=== PATIENT | male | born 1955 | race Caucasian/White ===

== ENCOUNTER → 2018-05-15 14:54 | Outpatient (CLI) | payer MEDICAID, SELFPAY ==
--- NOTE | 2018-05-15 14:58 | RAD_ITS ---
STUDY: X-RAY - RIGHT ELBOW REASON FOR EXAM: Male, 63 years old. Pain for 18 months, suspected lifting injury TECHNIQUE: 3 view(s) of the elbow. COMPARISON: None. FINDINGS: Normal visualized humerus, radius and ulna. Normal radiocapitellar and ulnotrochlear articulations. The soft tissue structures are unremarkable. No joint effusion. RAD/Elbow min 3 Views IMPRESSION: Normal x-ray examination of the elbow. Electronically Signed: Art Dean MD at 14:17 EDT , Service support ,
== END ==
PROVIDERS: Family Provider Family Medicine; PCP Family Medicine; Referring Provider Orthopaedic Surgery; Visit Provider Orthopaedic Surgery
DX: M25.521 Pain in right elbow (principal)
CPT/HCPCS: 73080

== ENCOUNTER → 2018-06-03 12:26 | Outpatient (CLI) | payer MEDICAID, SELFPAY ==
--- NOTE | 2018-06-03 12:28 | MRI_ITS ---
STUDY: MRI RIGHT ELBOW REASON FOR EXAM: Radial elbow pain for one year, no specific injury. TECHNIQUE: Standardized fat and water weighted pulse sequences were obtained in all 3 orthogonal planes. COMPARISON: Radiographs 05/15/2018. FINDINGS: Normal radio-capitellum articulation. Normal radial collateral ligamentous complex. There is an undersurface partial tear of the common extensor tendon (inversion recovery coronal images 10, 11). Normal ulnotrochlear articulation. Normal ulnar collateral ligamentous complex. Normal common flexor tendon. The cubital tunnel is normal, with a normal ulnar nerve. Normal biceps tendon and distal insertion. Normal lacertus fibrosis. Normal brachialis musculotendinous insertion. Normal triceps tendon and teno-osseous insertion. Normal olecranon process. The visualized distal humerus, proximal radius, and ulna are normal. The visualized muscles of the distal arm and proximal forearm are normal. The soft tissue structures are unremarkable. MRI/Upper Ext Joint Only(Routine) IMPRESSION: Lateral epicondylitis with undersurface partial tear of the common extensor tendon. Electronically Signed: Wolfgang Sung MD at 10:47 EST Tel , Service support ,
== END ==
PROVIDERS: Family Provider Family Medicine; PCP Family Medicine; Referring Provider Orthopaedic Surgery; Visit Provider Orthopaedic Surgery
DX: M25.821 Other specified joint disorders, right elbow (principal); M77.11 Lateral epicondylitis, right elbow
CPT/HCPCS: 73221